=== PATIENT | male | born 1985 | race African-American/Black ===

== ENCOUNTER 2023-05-11 10:47 | Emergency (ER) | payer MEDICAID ==
[~2023-05-11] VITALS: Ht 190.5 cm; Wt 79.0 kg
[2023-05-11 10:52] VITALS: BP 125/80; PULSE 74; RESP 20; TEMP 97.8; O2SAT 100
[2023-05-11] MEDS ORDERED: CYCL10TA21 MT (13:56)
[2023-05-11] MEDS ORDERED: IBUP-2029 MT (13:56)
== END 2023-05-11 14:35 | disposition home or self-care (01) ==
LOC: ER 10:47
DX: S13.4XXA Sprain of ligaments of cervical spine, initial encounter (principal); S39.012A Strain of muscle, fascia and tendon of lower back, initial encounter; V49.59XA Passenger injured in collision with other motor vehicles in traffic accident, initial encounter; Y93.89 Activity, other specified; Y92.89 Other specified places as the place of occurrence of the external cause; Y99.8 Other external cause status
CPT/HCPCS: 99281; 99283